=== PATIENT | female | born 1960 | race Caucasian/White ===

== ENCOUNTER 2017-03-04 20:24 | Inpatient (IN) ==
--- NOTE | 2017-03-04 23:09 | Internal Med History&Physical ---
<EddiYves - Last Filed: 03/04/17 23:27> Date of Encounter: 03/04/17 Time of Encounter: 22:30 Assessment and Plan (1) Dehydration Current visit: No Status: Acute - IV fluids. 80 mls/hr. - Encourage fluid PO intake. (2) KENYA (acute kidney injury) Current visit: Yes Status: Acute Current creatinine level at 1.36. Baseline is 0.84 from 02/24/15. Likely secondary to dehydration. - Follow plan above. (3) Light-headedness Current visit: Yes Status: Acute CTA of head reveals no acute abnormalities. Neuro assessment normal. Patient denies any fever, dysuria, or hematuria. UA shows no signs of infection. Patient afebrile. Suspicion of UTI is low. Likely secondary to dehydration. - Follow plan stated for dehydration. (4) Chest pain Current visit: Yes Status: Acute Atypical chest pain symptoms. BRIANNA score 2. EKG shows Sinus tachy with no signs of ischemic changes. CTA of chest shows no PE or acute cardiopulmonary disease. Chest pain reproducible with palpation and with deep breaths. Most likely muscular pain vs. GERD. - Trend troponins. - Repeat EKG in morning. - Check Magnesium level in morning. - Pepcid BID. Qualifiers: Chest pain type: chest pain on breathing Qualified Code(s): R07.1 - Chest pain on breathing; R07.81 - Pleurodynia (5) Hypertension Current visit: Yes Status: Acute BP currently elevated at 168/67. - Metoprolol. Qualifiers: Hypertension type: unspecified Qualified Code(s): I10 - Essential (primary ) hypertension (6) Hypothyroidism Current visit: Yes Status: Acute - Synthroid. Qualifiers: Qualified Code(s): E03.9 - Hypothyroidism, unspecified (7) Anxiety Current visit: Yes Status: Acute - Buspar. - Ativan. (8) DVT prophylaxis Current visit: Yes Status: Acute - Ambulate TID. Internal Medicine - H&P: HPI Chief complaint: Light-headedness, shortness of breath Admitted From: Hospital to Hospital Transfer History of present illness: Ms. Jacobsen is a 56 year old female with a PMH of HTN, thyroid disease, and anxiety that presents for light-headedness and shortness of breath. Patient says that earlier today while she was driving, she suddenly started to feel light-headed and became short of breath. She denies dizziness or nausea, but states that she did vomit. She denies any hematemesis. She admits to a mild DURBIN that comes and goes. She denies any vision changes. Denies weakness, numbness/ tingling. She was taken to [facility] where she was tachycardic 130s and hypotensive 80 systolic. She responded to IV fluids. She was also started on rocephin due to suspicion of UTI. She denies any fever, chills, dysuria, or hematuria. Patient says that she does not drink water at home and consumes only "Coolaid". She also admits that she does not eat well. She smokes tobacco everyday. After she was transferred to [facility], she says that she has started to feel some epigastric pain. She says it is non-radiating, not positionally related, pressure-like, and rates it as a 5/10 on the pain scale. She denies any SOB right now. Past Med Surg Social Fam HX - Past Medical History Medical history: hypertension, thyroid disease Psychiatric history: anxiety, depression - Past Surgical History Surgical History: non-contributory, knee replacement, orthopedic, other - Social History Smoking Status: Current every day smoker Smokeless Tobacco Status: No Alcohol use: occasionally Drug use: none - Family History Father Hx Family Endocrine Disorder: Yes (DM) Son Hx Family Endocrine Disorder: Yes (DM) Internal Medicine - H&P: Meds Metoprolol [Lopressor] 100 mg PO BID 11/30/14 [History] Buspirone HCl [Buspar] 30 mg PO DAILY 03/04/17 [History] Cyclobenzaprine HCl 5 mg PO TID PRN 03/04/17 [History] Dicyclomine [Bentyl] 20 mg PO TID 03/04/17 [History] Duloxetine HCl [Cymbalta] 60 mg PO DAILY 03/04/17 [History] Estrogens, Conjugated [Premarin] 0.625 mg PO DAILY 03/04/17 [History] Gabapentin [Neurontin] 300 mg PO BID 03/04/17 [History] Ibuprofen [Motrin] 800 mg PO TID PRN 03/04/17 [History] LORazepam [Ativan] 0.5 mg PO TID 03/04/17 [History] Levothyroxine [Synthroid] 75 mcg PO 0630 03/04/17 [History] Lurasidone HCl [Latuda] 60 mg PO DAILY 03/04/17 [History] Multivitamin [One Daily Essential] 1 each PO DAILY 03/04/17 [History] Omeprazole [PriLOSEC] 20 mg PO DAILY 03/04/17 [History] Onabotulinumtoxina [Botox] 200 unit IM [id number] 03/04/17 [History] Oxybutynin [Ditropan] 5 mg PO DAILY 03/04/17 [History] Simvastatin [Zocor] 40 mg PO HS 03/04/17 [History] 3 Allergy/AdvReac Type Severity Reaction Status Date / Time doxycycline Allergy Nausea Verified 03/04/17 16:18 aspirin AdvReac Nausea Verified 03/04/17 16:18 Oxycodone [From Percocet] AdvReac Vomiting Verified 03/04/17 16:18 All Systems PM: A 10-system review of systems was performed and is negative for pertinent findings except as documented above in the HPI. - Constitutional Constitutional: as per HPI - EENT Eyes: as per HPI, no blurry vision, no change in vision, no diplopia - Cardiovascular Cardiovascular ROS IM: chest pain, dyspnea, lightheadedness - Respiratory Respiratory: dyspnea, no cough - Gastrointestinal Gastrointestinal: abdominal pain (Epigastric pain. ), heartburn, vomiting, no constipation, no diarrhea, no loose stools, no nausea - Genitourinary Genitourinary: as per HPI, no difficulty urinating, no dysuria, no hematuria - Musculoskeletal Musculoskeletal ROS IM: no muscle weakness, no numbness, no tingling - Neurological Neurological ROS: no dizziness, no numbness, no tingling, no weakness - Constitutional Vitals: Temp Pulse Resp BP Pulse Ox 98.9 F 128 20 168/67 98 03/04/17 22:04 03/04/17 22:04 03/04/17 22:04 03/04/17 22:04 03/04/17 22:04 General appearance: Present: A&O X 3, no acute distress, answers questions appropriately - Eye Eye exam: Present: EOMI - ENT ENT exam: Present: mucous membranes dry - Respiratory Respiratory exam: Present: chest wall tenderness (Reproducible with touch. ), CTAB. Absent: rhonchi, wheezes - Cardiovascular Cardiovascular exam: Present: +S1, +S2, tachycardia - GI/Abdominal GI/Abdominal exam: Present: normal bowel sounds, soft, tenderness (Mid- epigastric pain. ). Absent: guarding, rebound - Extremities Exam Extremities exam: Present: full ROM, radial pulses palpable and symmetrical. Absent: pedal edema, tenderness - Neurological Exam Neurological exam: Present: CN II-XII intact, oriented X3, reflexes normal, no focal deficits, strengths equal and symetr throughout Internal Med - H&P Results - EKG Data -: EKG Interpreted by Myself EKG shows normal: sinus rhythm Rate: tachycardia - EKG Data Prior EKG available for review: no <Bhaskar-Kushal Fonseca - Last Filed: 03/05/17 00:29> Date of Encounter: 03/04/17 Internal Medicine - H&P: HPI History of present illness: Ms. Jacobsen is a 56 year old female All Systems PM: A 10-system review of systems was performed and is negative for pertinent findings except as documented above in the HPI. - Constitutional Vitals: Temp Pulse Resp BP Pulse Ox 98.9 F 128 20 168/67 98 03/04/17 22:04 03/04/17 22:04 03/04/17 22:04 03/04/17 22:04 03/04/17 22:04 - Attending Attestation I examined this patient and my medical decision-making was reviewed with the Resident Physician. I agree with the documented findings, disposition and treatment plan as described except to the extent set forth below. I have seen and examined the patient. Patient presents as a transfer from [facility]. She presented initially for lightheadedness and shortness of breath. Patient has a history of hypertension, anxiety, depression and thyroid disease. She is a daily smoker. Initial workup in the ED including CTA chest is negative for PE and negative for acute cardiopulmonary disease. CT of the head is negative for any acute intracranial abnormality. Significant lab findings included elevated creatinine at 1.36, likely due to dehydration and volume depletion. Troponin is elevated at 0.08 probably due to tachycardia and dehydration. EKG shows sinus tachycardia. We will trend troponin. Continue all home medications. Continue IV fluids. Repeat labs in a.m. Patient is awake and alert. Able to provide all history. She has no focal neurological deficits. Monitor closely. Patient has been explained about her condition and plan of care in detail. She understood and agreed. No unanswered questions. CODE STATUS full code.
[2017-03-04] MEDS ORDERED: Ondansetron ODT 4 MG TAB.RAPDIS SL PRN (23:20)
[2017-03-04] MEDS: 0.9 % Sodium Chloride 1,000 ML IVC SCH (23:37)
[2017-03-04] MEDS: Famotidine 20 MG TABLET PO SCH (23:46)
[2017-03-05 00:42] LABS: Mean Corpuscular HGB Conc 33.3 g/dL (31.6-35.5); Mean Corpuscular Hemoglobin 32.1 pg (28.0-33.3); Mean Corpuscular Volume 96.2 fL (83.0-100.0); Mean Platelet Volume 9.1 fL (9.4-12.4); Platelet Count 320 K/mcL (140-400); Red Blood Count 3.43 M/mcL (3.82-4.97); Red Cell Distribution Width 12.6 % (11.5-14.5)
[2017-03-05] MEDS ORDERED: Acetaminophen 325 MG TABLET PO PRN (00:49)
[2017-03-05] MEDS ORDERED: Melatonin 3 MG TABLET PO PRN (00:54)
[2017-03-05 00:55] LABS: BUN/Creatinine Ratio 14 (6-26); Blood Urea Nitrogen 14 mg/dL (7-20); Calcium 8.5 mg/dL (8.6-10.8); Carbon Dioxide 18 mEq/L (19-29); Chloride 112 mEq/L (98-109); Glucose 103 mg/dL (70-99); Osmolality,Calculated 291 (280-300); Potassium 3.6 mEq/L (3.5-4.5); Sodium 140 mEq/L (136-145); eGFR For African Americans > 60 (> 60); eGFR For Non-African Americans 58 (> 60)
[2017-03-05] MEDS: *HR* Heparin 5,000 UNIT/ML VIAL SQ SCH ×4 (01:05→21:24)
[2017-03-05 05:37] LABS: Basophils # 0.1 K/mcL (0.0-0.2); Basophils % 0.6 %; Eosinophils # 0.1 K/mcL (0.0-0.6); Eosinophils % 1.2 %; Hematocrit 29.4 % (35.3-44.9); Hemoglobin 9.9 g/dL (11.5-15.4); Immature Granulocytes % 0.1 % (0-4); Lymphocytes # 3.4 K/mcL (0.6-4.6); Lymphocytes % 36.9 %; Mean Corpuscular HGB Conc 33.7 g/dL (31.6-35.5); Mean Corpuscular Hemoglobin 31.8 pg (28.0-33.3); Mean Corpuscular Volume 94.5 fL (83.0-100.0); Mean Platelet Volume 9.5 fL (9.4-12.4); Monocytes # 0.7 K/mcL (0.0-1.3); Monocytes % 7.7 %; Platelet Count 276 K/mcL (140-400); Red Blood Count 3.11 M/mcL (3.82-4.97); Red Cell Distribution Width 12.6 % (11.5-14.5); Segmented Neutrophils % 53.5 %
[2017-03-05 05:54] LABS: BUN/Creatinine Ratio 17 (6-26); Blood Urea Nitrogen 14 mg/dL (7-20); Calcium 8.3 mg/dL (8.6-10.8); Carbon Dioxide 14 mEq/L (19-29); Chloride 116 mEq/L (98-109); Glucose 98 mg/dL (70-99); Magnesium 1.5 mg/dL (1.6-2.6); Osmolality,Calculated 288 (280-300); Potassium 3.6 mEq/L (3.5-4.5); Sodium 139 mEq/L (136-145); eGFR For African Americans > 60 (> 60); eGFR For Non-African Americans > 60 (> 60)
[2017-03-05] MEDS: Ibuprofen 400 MG TABLET PO PRN ×2 (06:29→18:17)
[2017-03-05] MEDS: Famotidine 20 MG TABLET PO SCH ×2 (07:59→15:45)
[2017-03-05] MEDS: Gabapentin 300 MG CAPSULE PO SCH ×2 (07:59→21:24)
[2017-03-05] MEDS: Metoprolol 100 MG TABLET PO SCH ×2 (07:59→21:23)
[2017-03-05] MEDS: *HR* LORazepam 0.5 MG TABLET PO SCH ×3 (07:59→21:23)
[2017-03-05] MEDS: Multivitamin Liquid 15 ML UDC PO SCH (08:53)
[2017-03-05] MEDS: Lurasidone 20 MG TABLET PO SCH (08:53)
[2017-03-05] MEDS: 0.9 % Sodium Chloride 1,000 ML IVC SCH (10:48)
--- NOTE | 2017-03-05 10:52 | Cardiology Consult Note ---
<Mike Wilkes R - Last Filed: 03/05/17 11:30> Date of Encounter: 03/05/17 Time of Encounter: 10:52 Assessment and Plan (1) Elevated troponin Current Visit: Yes Status: Acute Troponin 0.08 0.08, 0.05 in setting of dehydration, KENYA, profound hypotension now with hypertension. Suspect demand ischemia, nondiagnostic for ACS. No ischemic EKG changes. Documentation that pt complained of chest pain yesterday, which now pt reports she "can't remember". Denies chest pain currently. No hx of CAD, risk factors of HTN, HLD, obesity, tobacco abuse. Recommend checking echo to evaluate structure and function. If no significant findings, anticipate sign off from cardiology standpoint. Given risk factors for CAD, recommend stress test as outpt if no significant echo findings. (2) Hypertension Current Visit: Yes Status: Acute Currently on Lopressor 100mg BID. BP not at goal. Add norvasc 5mg daily. Adjust as necessary. Qualifiers: Hypertension type: unspecified Qualified Code(s): I10 - Essential (primary ) hypertension Discussion w patient/family: The assessment and plan as outlined above was discussed with the patient and/or family members who expressed understanding and agreement. All questions were answered. Thank you for involving us in the care of your patient. Please call with any questions. I will discuss all the above with Dr. Mcmanus and make changes as necessary. History of Present Illness Consult date: 03/05/17 Requesting physician: Last Dawn Consult reason: Elevated troponin Chief complaint: Dizziness, vomiting, dyspnea History of present illness: Ms. Jacobsen is a 56 year old female with a PMH of HTN, thyroid disease, and anxiety that presented to [facility] for light-headedness and shortness of breath. Patient says that she was driving, she suddenly started to feel light-headed and became short of breath. Reports vomiting at urgent care. Pt was tachycardic with HR 130s, SR, and hypotensive as low as 70s systolic, then hypertensive BP as high as 175/99. Reports she does not drink water at home and consumes only "Koolaid". She also admits that she does not eat well. Mild KENYA creatinine 1.36 on admission, now improved. There is documentation of chest pain. Pt denies chest pain currently, unsure if she had any yesterday. Troponins 0.08, 0.08, 0.05. Cardiology consulted for further recommendations. Past Med Surg Social Fam HX - Past Medical History Medical history: hypertension, thyroid disease Psychiatric history: anxiety, depression - Past Surgical History Surgical History: non-contributory, knee replacement, orthopedic, other - Social History Smoking Status: Current every day smoker Smokeless Tobacco Status: No Alcohol use: occasionally Drug use: none - Family History Father Hx Family Endocrine Disorder: Yes (DM) Son Hx Family Endocrine Disorder: Yes (DM) Medications and Allergies Metoprolol [Lopressor] 100 mg PO BID 11/30/14 [History] Buspirone HCl [Buspar] 30 mg PO DAILY 03/04/17 [History] Cyclobenzaprine HCl 5 mg PO TID PRN 03/04/17 [History] Dicyclomine [Bentyl] 20 mg PO TID 03/04/17 [History] Duloxetine HCl [Cymbalta] 60 mg PO DAILY 03/04/17 [History] Estrogens, Conjugated [Premarin] 0.625 mg PO DAILY 03/04/17 [History] Gabapentin [Neurontin] 300 mg PO BID 03/04/17 [History] Ibuprofen [Motrin] 800 mg PO TID PRN 03/04/17 [History] LORazepam [Ativan] 0.5 mg PO TID 03/04/17 [History] Levothyroxine [Synthroid] 75 mcg PO 0630 03/04/17 [History] Lurasidone HCl [Latuda] 60 mg PO DAILY 03/04/17 [History] Multivitamin [One Daily Essential] 1 each PO DAILY 03/04/17 [History] Omeprazole [PriLOSEC] 20 mg PO DAILY 03/04/17 [History] Onabotulinumtoxina [Botox] 200 unit IM [id number] 03/04/17 [History] Oxybutynin [Ditropan] 5 mg PO DAILY 03/04/17 [History] Simvastatin [Zocor] 40 mg PO HS 03/04/17 [History] 3 Allergy/AdvReac Type Severity Reaction Status Date / Time doxycycline Allergy Nausea Verified 03/04/17 16:18 aspirin AdvReac Nausea Verified 03/04/17 16:18 Oxycodone [From Percocet] AdvReac Vomiting Verified 03/04/17 16:18 All Systems Review: A 10-system review of systems was performed and is negative for pertinent findings except as documented above in the HPI. - Cardiovascular Cardiovascular: as per HPI, dyspnea at rest, dyspnea on exertion, lightheadedness - Respiratory Respiratory: dyspnea - Neurological Neurological: dizziness Physical Examination Vital Signs, Last 4 Hours Temp Pulse Resp BP Pulse Ox 03/05/17 07:01 98.3 F 105 18 175/99 98 Vital Signs Temp Pulse Resp BP Pulse Ox 03/05/17 10:57 98.6 F 74 16 147/96 97 03/05/17 07:01 98.3 F 105 18 175/99 98 03/05/17 03:15 99.3 F 111 20 144/67 97 03/04/17 22:04 98.9 F 128 20 168/67 98 Intake and Output 03/04/17 03/05/17 03/05/17 23:59 07:59 15:59 Intake Total 1480 / 1480 Output Total 800 / 800 300 / 300 Balance -800 / -800 1180 / 1180 Intake: IV Fluids 1000 / 1000 0.9 % Sodium Chloride 1,000 ML 1000 / 1000 @ 80 mls/hr IVC .[id number] [facility] Rx #:[id number] Oral 480 / 480 Output: Urine 300 / 300 Urethral ([place]) 300 / 300 Catheter 800 / 800 Other: Meal Breakfast Percent of Meal Consumed 35% Weight 80.966 kg 81.102 kg Patient Weight 03/05/17 23:59 Weight 81.102 kg General: Conversant, No Apparent Distress HEENT: Atraumatic, Normocephaly, Mucus Membranes Moist Neck: No JVD, Normal carotid pulses Cardiac: Reg Rate and Rhythm, Normal S1 and S2, No Murmur Lungs: Normal Breath Sounds, No Wheeze, Rales, Rhonchi Neuro: Alert and responsive, No focal deficits noted Abdomen: Soft, Non-Tender Skin: No rashes noted on visualized skin Musculoskeletal: No Chest Wall Tenderness Extremities: No Clubbing, No Cyanosis, No Edema, Normal Pulses Results 03/05/17 05:29 03/05/17 05:29 Lab Results 03/05/17 03/05/17 03/05/17 00:14 00:36 00:36 WBC 9.4 Hgb 11.0 L Hct 33.0 L Plt Count 320 Sodium 140 Potassium 3.6 Chloride 112 H Carbon Dioxide 18 L BUN 14 Creatinine 0.99 Glucose 103 H Calcium 8.5 L Magnesium Troponin I 0.08 H* 03/05/17 03/05/17 03/05/17 05:29 05:29 05:29 WBC 9.3 Hgb 9.9 L Hct 29.4 L Plt Count 276 Sodium 139 Potassium 3.6 Chloride 116 H Carbon Dioxide 14 L BUN 14 Creatinine 0.83 Glucose 98 Calcium 8.3 L Magnesium 1.5 L Troponin I 0.05 H* Short CBC 03/05/17 03/05/17 03/05/17 Range/Units 05:29 05:29 05:29 WBC 9.3 (4.3-11.1) K/mcL RBC 3.11 L (3.82-4.97) M/mcL Hgb 9.9 L (11.5-15.4) g/dL Hct 29.4 L (35.3-44.9) % MCV 94.5 (83.0-100.0) fL MCH 31.8 (28.0-33.3) pg MCHC 33.7 (31.6-35.5) g/dL RDW 12.6 (11.5-14.5) % Plt Count 276 (140-400) K/mcL MPV 9.5 (9.4-12.4) fL Immature Gran % 0.1 (0-4) % Seg Neutrophils % 53.5 % Lymphocytes % 36.9 % Monocytes % 7.7 % Eosinophils % 1.2 % Basophils % 0.6 % Neutrophils # 5.0 (1.6-8.9) K/mcL Lymphocytes # 3.4 (0.6-4.6) K/mcL Monocytes # 0.7 (0.0-1.3) K/mcL Eosinophils # 0.1 (0.0-0.6) K/mcL Basophils # 0.1 (0.0-0.2) K/mcL Sodium 139 (136-145) mEq/L Potassium 3.6 (3.5-4.5) mEq/L Chloride 116 H (98-109) mEq/L Carbon Dioxide 14 L (19-29) mEq/L BUN 14 (7-20) mg/dL Creatinine 0.83 (0.57-1.11) mg/dL Est GFR ( Amer) > 60 (> 60) Est GFR (Non-Af Amer) > 60 (> 60) BUN/Creatinine Ratio 17 (6-26) Glucose 98 (70-99) mg/dL Calculated Osmolality 288 (280-300) Calcium 8.3 L (8.6-10.8) mg/dL Magnesium 1.5 L (1.6-2.6) mg/dL Troponin I 0.05 H* (0-0.03) ng/mL 03/05/17 03/05/17 03/05/17 Range/Units 00:36 00:36 00:14 WBC 9.4 (4.3-11.1) K/mcL RBC 3.43 L (3.82-4.97) M/mcL Hgb 11.0 L (11.5-15.4) g/dL Hct 33.0 L (35.3-44.9) % MCV 96.2 (83.0-100.0) fL MCH 32.1 (28.0-33.3) pg MCHC 33.3 (31.6-35.5) g/dL RDW 12.6 (11.5-14.5) % Plt Count 320 (140-400) K/mcL MPV 9.1 L (9.4-12.4) fL Immature Gran % (0-4) % Seg Neutrophils % % Lymphocytes % % Monocytes % % Eosinophils % % Basophils % % Neutrophils # (1.6-8.9) K/mcL Lymphocytes # (0.6-4.6) K/mcL Monocytes # (0.0-1.3) K/mcL Eosinophils # (0.0-0.6) K/mcL Basophils # (0.0-0.2) K/mcL Sodium 140 (136-145) mEq/L Potassium 3.6 (3.5-4.5) mEq/L Chloride 112 H (98-109) mEq/L Carbon Dioxide 18 L (19-29) mEq/L BUN 14 (7-20) mg/dL Creatinine 0.99 (0.57-1.11) mg/dL Est GFR ( Amer) > 60 (> 60) Est GFR (Non-Af Amer) 58 L (> 60) BUN/Creatinine Ratio 14 (6-26) Glucose 103 H (70-99) mg/dL Calculated Osmolality 291 (280-300) Calcium 8.5 L (8.6-10.8) mg/dL Magnesium (1.6-2.6) mg/dL Troponin I 0.08 H* (0-0.03) ng/mL BMP 03/05/17 03/05/17 Range/Units 05:29 00:36 Sodium 139 140 (136-145) mEq/L Potassium 3.6 3.6 (3.5-4.5) mEq/L Chloride 116 H 112 H (98-109) mEq/L Carbon Dioxide 14 L 18 L (19-29) mEq/L BUN 14 14 (7-20) mg/dL Creatinine 0.83 0.99 (0.57-1.11) mg/dL Glucose 98 103 H (70-99) mg/dL Calcium 8.3 L 8.5 L (8.6-10.8) mg/dL Cardiac Enzymes 03/05/17 03/05/17 Range/Units 05:29 00:14 Troponin I 0.05 H* 0.08 H* (0-0.03) ng/mL Active Medications Acetaminophen (Tylenol) 650 mg PO Q6HR PRN PRN Reason: Mild Pain (1-3) Stop: 09/04/17 00:50 Last Admin: 03/05/17 01:04 Dose: 650 mg Buspirone HCl (Buspar) 30 mg PO DAILY [facility] Stop: 09/04/17 09:01 Last Admin: 03/05/17 07:59 Dose: 30 mg Duloxetine HCl (Cymbalta) 60 mg PO DAILY [facility] Stop: 09/04/17 09:01 Last Admin: 03/05/17 07:59 Dose: 60 mg Estrogens Conjugated (Premarin) 0.625 mg PO DAILY [facility] Stop: 09/04/17 09:01 Last Admin: 03/05/17 07:58 Dose: 0.625 mg Famotidine (Pepcid) 20 mg PO BIDAC [facility] PRN Reason: Protocol Stop: 09/03/17 23:31 Last Admin: 03/05/17 07:59 Dose: 20 mg Gabapentin (Neurontin) 300 mg PO BID [facility] Stop: 09/04/17 09:01 Last Admin: 03/05/17 07:59 Dose: 300 mg Heparin Sodium (Porcine) (Heparin) 5,000 unit SQ Q8HCO [facility] Stop: 09/04/17 00:31 Last Admin: 03/05/17 06:16 Dose: 5,000 unit Sodium Chloride (0.9 % Sodium Chloride) 1,000 mls @ 80 mls/hr IVC .[id number] [facility] Stop: 09/03/17 23:16 Last Admin: 03/05/17 10:48 Dose: 80 mls/hr Ibuprofen (Motrin) 400 mg PO Q6HR PRN PRN Reason: Mild Pain (1-3) Stop: 09/04/17 06:16 Last Admin: 03/05/17 06:29 Dose: 400 mg Levothyroxine Sodium (Synthroid) 75 mcg PO 0630 [facility] Stop: 09/04/17 06:31 Last Admin: 03/05/17 06:16 Dose: 75 mcg Lorazepam (Ativan) 0.5 mg PO TID [facility] Stop: 09/04/17 09:01 Last Admin: 03/05/17 07:59 Dose: 0.5 mg Lurasidone HCl (Latuda) 60 mg PO DAILY [facility] Stop: 09/04/17 09:01 Last Admin: 03/05/17 08:53 Dose: 60 mg Melatonin (Melatonin) 3 mg PO HS PRN PRN Reason: Insomnia Stop: 09/04/17 00:55 Last Admin: 03/05/17 01:04 Dose: 3 mg Metoprolol Tartrate (Lopressor) 100 mg PO BID [facility] Stop: 09/04/17 09:01 Last Admin: 03/05/17 07:59 Dose: 100 mg Multivitamins/Minerals (Cerovite Liquid) 15 ml PO DAILY [facility] Stop: 09/04/17 09:01 Last Admin: 03/05/17 08:53 Dose: 15 ml Omeprazole (Prilosec) 20 mg PO 0630 [facility] PRN Reason: Protocol Stop: 09/03/17 23:16 Last Admin: 03/05/17 06:16 Dose: 20 mg Ondansetron HCl (Zofran Odt) 4 mg SL Q8HR PRN PRN Reason: Nausea And Vomiting Stop: 09/03/17 23:21 Oxybutynin Chloride (Ditropan) 5 mg PO DAILY [facility] PRN Reason: Protocol Stop: 05/24/18 09:01 Last Admin: 03/05/17 07:59 Dose: 5 mg Simvastatin (Zocor) 40 mg PO HS [facility] PRN Reason: Protocol Stop: 09/03/17 23:16 Last Admin: 03/04/17 23:37 Dose: 40 mg - EKG Interpretation EKG results cardiology: personally reviewed (sinus tach), other (12 hr tele AVG HR 104, sinus tach) Consult Discharge Plan - Plan Referrals: Bhargav Fortune, NON [employer] [Primary Care Provider] - 03/17/17 5:30 pm <Rome Mcmanus - Last Filed: 03/05/17 18:03> Date of Encounter: 03/05/17 - Attending Attestation I have personally performed a face to face evaluation on this patient. I have reviewed and agree with the care plan. History and Exam by me shows: 1. Elevated troponin - minimal, suspect demand ischemia, no acute EKG changes, hx of chest pain pt now denies, not clearly ischemic, however risk factors including tobacco abuse, hypertension, obesity, hyperlipidemia. Echo ordered, if structurally normal heart is at low risk for hospital discharge, with outpatient stress imaging 2. Hypertension; bp markedly elevated on presentation, added Norvasc 5 mg q d, better controlled back on home meds. 3. Tobacco abuse, discussed smoking cessation, pt reports she has quit but still smokes occasionally. 4. Dehydration: improved with fluid replacement. Assessment and Plan Discussion w patient/family: The assessment and plan as outlined above was discussed with the patient and/or family members who expressed understanding and agreement. All questions were answered. Thank you for involving us in the care of your patient. Please call with any questions. History of Present Illness History of present illness: Ms. Jacobsen is a 56 year old female All Systems Review: A 10-system review of systems was performed and is negative for pertinent findings except as documented above in the HPI. Physical Examination Vital Signs, Last 4 Hours Temp Pulse Resp BP Pulse Ox 03/05/17 15:51 97.3 F L 78 16 174/116 99 Results 03/05/17 05:29 03/05/17 05:29 Lab Results 03/05/17 03/05/17 03/05/17 00:14 00:36 00:36 WBC 9.4 Hgb 11.0 L Hct 33.0 L Plt Count 320 Sodium 140 Potassium 3.6 Chloride 112 H Carbon Dioxide 18 L BUN 14 Creatinine 0.99 Glucose 103 H Calcium 8.5 L Magnesium Troponin I 0.08 H* 03/05/17 03/05/17 03/05/17 05:29 05:29 05:29 WBC 9.3 Hgb 9.9 L Hct 29.4 L Plt Count 276 Sodium 139 Potassium 3.6 Chloride 116 H Carbon Dioxide 14 L BUN 14 Creatinine 0.83 Glucose 98 Calcium 8.3 L Magnesium 1.5 L Troponin I 0.05 H* 03/05/17 11:08 WBC Hgb Hct Plt Count Sodium Potassium Chloride Carbon Dioxide BUN Creatinine Glucose Calcium Magnesium Troponin I 0.02
[2017-03-05] MEDS: amLODIPine 5 MG TABLET PO SCH (15:49)
--- NOTE | 2017-03-05 18:16 | Internal Med Progress Note ---
Date of Encounter: 03/05/17 Time of Encounter: 11:00 - Assessment and plan (1) Chest pain Current Visit: Yes Status: Acute Assessment and plan: -Patient with atypical chest pain and elevated troponins -Cardiology consulted with recommendation of echocardiogram. -If echocardiogram without any acute findings then will have patient obtain outpatient stress test per cardiology. Qualifiers: Chest pain type: unspecified Qualified Code(s): R07.9 - Chest pain, unspecified (2) Light-headedness Current Visit: Yes Status: Acute Assessment and plan: -Suspect secondary to dehydration. -Will continue IV fluids and monitor. (3) KENYA (acute kidney injury) Current Visit: Yes Status: Acute Assessment and plan: -Suspect secondary to dehydration -Will continue IV fluids as above and monitor. (4) Hypertension Current Visit: Yes Status: Acute Assessment and plan: -Continue home medications. Qualifiers: Hypertension type: unspecified Qualified Code(s): I10 - Essential (primary ) hypertension (5) Hypothyroidism Current Visit: Yes Status: Acute Assessment and plan: -Continue home medications. Qualifiers: Hypothyroidism type: unspecified Qualified Code(s): E03.9 - Hypothyroidism , unspecified (6) Anxiety Current Visit: Yes Status: Acute Assessment and plan: -Continue home medications. (7) DVT prophylaxis Current Visit: Yes Status: Acute Assessment and plan: -Patient is to ambulate. - Subjective Interval history: No acute events overnight - Constitutional Vitals: Temp Pulse Resp BP Pulse Ox 97.3 F L 78 16 174/116 99 03/05/17 15:51 03/05/17 15:51 03/05/17 15:51 03/05/17 15:51 03/05/17 15:51 General appearance: Present: A&O X 3, no acute distress, answers questions appropriately - Respiratory Respiratory exam: Present: CTAB. Absent: accessory muscle use, rales, rhonchi, wheezes - Cardiovascular Cardiovascular exam: Present: RRR, +S1, +S2. Absent: diastolic murmur, gallop, rubs, systolic murmur Internal Medicine: Result - Labs CBC & Chem 7: 03/05/17 05:29 03/05/17 05:29 Labs: Short CBC 03/05/17 03/05/17 Range/Units 00:36 05:29 WBC 9.4 9.3 (4.3-11.1) K/mcL Hgb 11.0 L 9.9 L (11.5-15.4) g/dL Hct 33.0 L 29.4 L (35.3-44.9) % Plt Count 320 276 (140-400) K/mcL Neutrophils # 5.0 (1.6-8.9) K/mcL BMP 03/05/17 03/05/17 00:36 05:29 Sodium 140 139 Potassium 3.6 3.6 Chloride 112 H 116 H Carbon Dioxide 18 L 14 L BUN 14 14 Creatinine 0.99 0.83 Glucose 103 H 98 Calcium 8.5 L 8.3 L Cardiac Enzymes 03/05/17 03/05/17 03/05/17 Range/Units 00:14 05:29 11:08 Troponin I 0.08 H* 0.05 H* 0.02 (0-0.03) ng/mL Consult Discharge Plan - Plan Referrals: Bhargav Fortune, W[employer] INSPECTOR [Primary Care Provider] - 03/17/17 5:30 pm
--- NOTE | 2017-03-05 20:17 | Electrocardiograph Report ---
[place] [address] Test Date: 2017-03-05 Pat Name: Jessica Jacobsen Department: 113 Room: 3B24 Gender: F [employer] T[employer]: : 1960 Requested By: Yves Montague Order Number: [id number] Reading MD: Irvin Mckeon MD Measurements Intervals Arnett Rate: 106 P: 33 OK: 156 QRS: 17 QRSD: 86 T: -9 QT: 335 QTc: 397 Interpretive Statements SINUS TACHYCARDIA BASELINE ARTIFACT Electronically Signed On 03-05-2017 20:15:57 EST by Irvin Mckeon MD
[2017-03-06] MEDS: 0.9 % Sodium Chloride 1,000 ML IVC SCH ×2 (01:20→17:48)
[2017-03-06] MEDS: *HR* Heparin 5,000 UNIT/ML VIAL SQ SCH ×2 (06:01→17:47)
[2017-03-06] MEDS: Multivitamin Liquid 15 ML UDC PO SCH (09:10)
[2017-03-06] MEDS: Metoprolol 100 MG TABLET PO SCH (09:11)
[2017-03-06] MEDS: amLODIPine 5 MG TABLET PO SCH (09:11)
[2017-03-06] MEDS: Gabapentin 300 MG CAPSULE PO SCH (09:11)
[2017-03-06] MEDS: Famotidine 20 MG TABLET PO SCH ×2 (09:11→17:47)
[2017-03-06] MEDS: *HR* LORazepam 0.5 MG TABLET PO SCH ×2 (09:11→17:47)
[2017-03-06] MEDS: Lurasidone 20 MG TABLET PO SCH (09:11)
--- NOTE | 2017-03-06 09:47 | Event Note ---
Date of Encounter: 03/06/17 Time of Encounter: 09:46 - Cardiology Event Note TTE with LVEF 60%, no wall motion abnormalities. Per previous cardiology notes, cardioogy will sign off and will follow in outpatient setting. Follow up set.
[2017-03-06 11:00] LABS: BUN/Creatinine Ratio 10 (6-26); Blood Urea Nitrogen 7 mg/dL (7-20); Calcium 8.3 mg/dL (8.6-10.8); Carbon Dioxide 17 mEq/L (19-29); Chloride 110 mEq/L (98-109); Glucose 104 mg/dL (70-99); Osmolality,Calculated 282 (280-300); Potassium 3.4 mEq/L (3.5-4.5); Sodium 137 mEq/L (136-145); eGFR For African Americans > 60 (> 60); eGFR For Non-African Americans > 60 (> 60)
[2017-03-06 11:01] LABS: Basophils # 0.1 K/mcL (0.0-0.2); Basophils % 0.9 %; Eosinophils % 0.3 %; Hematocrit 29.5 % (35.3-44.9); Hemoglobin 10.1 g/dL (11.5-15.4); Immature Granulocytes % 0.6 % (0-4); Lymphocytes # 2.3 K/mcL (0.6-4.6); Lymphocytes % 25.7 %; Mean Corpuscular HGB Conc 34.2 g/dL (31.6-35.5); Mean Corpuscular Volume 93.4 fL (83.0-100.0); Mean Platelet Volume 9.5 fL (9.4-12.4); Monocytes # 0.7 K/mcL (0.0-1.3); Monocytes % 7.8 %; Neutrophils # 5.7 K/mcL (1.6-8.9); Platelet Count 279 K/mcL (140-400); Red Blood Count 3.16 M/mcL (3.82-4.97); Red Cell Distribution Width 12.5 % (11.5-14.5); Segmented Neutrophils % 64.7 %
[2017-03-06 15:07] VITALS: BP 148/92
--- NOTE | 2017-03-06 17:49 | Discharge Summary ---
Date of Encounter: 03/06/17 Time of Encounter: 11:00 - Discharge Diagnosis (1) Chest pain Priority: Secondary Status: Acute Qualifiers: Chest pain type: unspecified Qualified Code(s): R07.9 - Chest pain, unspecified (2) Light-headedness Priority: Primary Status: Acute (3) KENYA (acute kidney injury) Priority: Secondary Status: Acute (4) Hypertension Priority: Secondary Status: Acute Qualifiers: Hypertension type: unspecified Qualified Code(s): I10 - Essential (primary ) hypertension (5) Hypothyroidism Priority: Secondary Status: Acute Qualifiers: Hypothyroidism type: unspecified Qualified Code(s): E03.9 - Hypothyroidism , unspecified (6) Anxiety Priority: Secondary Status: Acute - Discharge Medications Home Medications: Metoprolol [Lopressor] 100 mg PO BID 11/30/14 [History] Buspirone HCl [Buspar] 30 mg PO DAILY 03/04/17 [History] Cyclobenzaprine HCl 5 mg PO TID PRN 03/04/17 [History] Dicyclomine [Bentyl] 20 mg PO TID 03/04/17 [History] Duloxetine HCl [Cymbalta] 60 mg PO DAILY 03/04/17 [History] Estrogens, Conjugated [Premarin] 0.625 mg PO DAILY 03/04/17 [History] Gabapentin [Neurontin] 300 mg PO BID 03/04/17 [History] Ibuprofen [Motrin] 800 mg PO TID PRN 03/04/17 [History] LORazepam [Ativan] 0.5 mg PO TID 03/04/17 [History] Levothyroxine [Synthroid] 75 mcg PO 0630 03/04/17 [History] Lurasidone HCl [Latuda] 60 mg PO DAILY 03/04/17 [History] Multivitamin [One Daily Essential] 1 each PO DAILY 03/04/17 [History] Omeprazole [PriLOSEC] 20 mg PO DAILY 03/04/17 [History] Onabotulinumtoxina [Botox] 200 unit IM [id number] 03/04/17 [History] Oxybutynin [Ditropan] 5 mg PO DAILY 03/04/17 [History] Simvastatin [Zocor] 40 mg PO HS 03/04/17 [History] Allergies/Adverse Reactions: 3 Allergy/AdvReac Type Severity Reaction Status Date / Time doxycycline Allergy Nausea Verified 03/04/17 16:18 aspirin AdvReac Nausea Verified 03/04/17 16:18 Oxycodone [From Percocet] AdvReac Vomiting Verified 03/04/17 16:18 Procedures/tests Complete & Pending: Procedures Performed prior 72 hours Category Date Time Status ECG 12 lead ECG [ECG] AM 0600 Y 03/05/17 06:00 Completed EV echocardiogram Routine Y 03/05/17 11:33 Completed Date of admission: 03/04/17 22:05 Primary care physician: Bhargav Fortune CNP Consults: 03/05/17 09:42 Consult to Cardiology [CONS] Routine Comment: Consulting Provider: Cardiology Isabella Reason for Consult: atypical chest pain with elevated troponins Call Completed: No - Patient Status Disposition: Home, Self-Care - Discharge Instructions Follow Up With: Bhargav Fortune CNP [Primary Care Provider] - 03/17/17 5:30 pm Hospital course: Patient is a 56-year-old female with past medical history significant for HTN, thyroid disease, and anxiety who presented to the ER on 03/04/17 with lightheadedness and shortness of breath. Patient decided to come to the ER for evaluation and was admitted for dehydration. The patients hospital stay patient was given IV fluids and her symptoms resolved. She will be discharged to follow up with her primary care provider. - Time Spent with Patient Total time spent providing and/or coordinating discharge services: Less than 30 minutes - Constitutional Vitals: Temp Pulse Resp BP Pulse Ox 97.8 F 87 15 148/92 98 03/06/17 15:04 03/06/17 15:04 03/06/17 15:04 03/06/17 15:04 03/06/17 15:04 General appearance: Present: A&O X 3, no acute distress, answers questions appropriately - Respiratory Respiratory exam: Present: CTAB. Absent: accessory muscle use, rales, rhonchi, wheezes - Cardiovascular Cardiovascular exam: Present: RRR, +S1, +S2. Absent: diastolic murmur, gallop, rubs, systolic murmur
== END 2017-03-06 18:42 | disposition home or self-care (01) | DRG 422 ==
LOC: 3BNU → SUATTDRO 22:05
PROVIDERS: ADMIT Internal Medicine; ATTEND Hospitalist

== ENCOUNTER 2019-04-05 13:46 | Inpatient (IN) ==
[2019-04-05] MEDS ORDERED: Naloxone 0.4 MG/ML INJ IVP PRN (16:21)
[2019-04-05] MEDS ORDERED: Ondansetron 4 MG/2 ML VIAL IVP PRN (16:28)
[2019-04-05] MEDS ORDERED: 0.9 % Sodium Chloride 1,000 ML IVC SCH (16:30)
[2019-04-05] MEDS: ceFAZolin 1,000 MG in 0.9 % Sodium Chloride Mini Bag 100 ML IVPB SCH (23:54)
[2019-04-06 05:59] LABS: Basophils % 0.5 %; Eosinophils # 0.1 K/mcL (0.0-0.6); Eosinophils % 1.4 %; Hematocrit 29.4 % (35.3-44.9); Hemoglobin 9.8 g/dL (11.5-15.4); Immature Granulocytes % 0.2 % (0-4); Lymphocytes % 36.7 %; Mean Corpuscular HGB Conc 33.3 g/dL (31.6-35.5); Mean Platelet Volume 10.7 fL (9.4-12.4); Monocytes % 11.8 %; Neutrophils # 4.1 K/mcL (1.6-8.9); Platelet Count 232 K/mcL (140-400); Red Blood Count 2.97 M/mcL (3.82-4.97); Red Cell Distribution Width 12.4 % (11.5-14.5); Segmented Neutrophils % 49.4 %; White Blood Count 8.3 K/mcL (4.3-11.1)
[2019-04-06 06:19] LABS: BUN/Creatinine Ratio 16 (6-26); Blood Urea Nitrogen 16 mg/dL (8-23); Calcium 8.4 mg/dL (8.6-10.3); Carbon Dioxide 25 mEq/L (23-29); Chloride 106 mEq/L (98-107); Glucose 101 mg/dL (70-105); Osmolality,Calculated 293 (280-300); Potassium 3.8 mEq/L (3.5-5.1); Sodium 141 mEq/L (136-145); eGFR For African Americans > 60 (> 60); eGFR For Non-African Americans 58 (> 60)
[2019-04-06] MEDS ORDERED: *HR* Midazolam HCl 2 MG/2 ML VIAL ONE (07:07)
[2019-04-06] MEDS ORDERED: Ondansetron 4 MG/2 ML VIAL ONE (07:07)
[2019-04-06] MEDS ORDERED: *HR* FentaNYL (PF) 100 MCG/2 ML VIAL ONE ×2 (07:07→09:14)
[2019-04-06] MEDS ORDERED: Lidocaine -MPF 2% 2 ML VIAL ONE (07:07)
[2019-04-06] MEDS ORDERED: *HR* Propofol 200 MG/20 ML VIAL IVP ONE (07:07)
[2019-04-06] MEDS ORDERED: Dexamethasone 4 MG/ML VIAL ONE ×2 (07:09→08:14)
[2019-04-06] MEDS ORDERED: CeFAZolin Syr 2,000MG/20 ML 2,000 MG/20 ML SYRINGE IVPB ONE (07:35)
[2019-04-06] MEDS: ceFAZolin 1,000 MG in 0.9 % Sodium Chloride Mini Bag 100 ML IVPB SCH (07:36)
[2019-04-06] MEDS ORDERED: ROPIVACAINE/PF/NS 0.25% 1 EACH SYRINGE INTRAART ONE (07:37)
[2019-04-06] MEDS ORDERED: Ropivacaine/PF 0.5% 30 ML VIAL ONE (07:37)
[2019-04-06] MEDS ORDERED: *HR* PHENYLEPHRINE 1,000 MCG/10 ML SYRINGE IVP ONE (08:08)
[2019-04-06] MEDS ORDERED: Gabapentin 300 MG CAPSULE PO SCH (09:00)
[2019-04-06] MEDS ORDERED: Metoprolol 100 MG TABLET PO SCH (09:00)
[2019-04-06] MEDS ORDERED: Multivit/Ca/Min/Fe/FA 1 TAB TABLET PO SCH (09:00)
[2019-04-06] MEDS ORDERED: *HR* Rocuronium Bromide 50 MG/5 ML VIAL ONE (09:25)
[2019-04-06] MEDS ORDERED: Naloxone 0.4 MG/ML INJ IVP PRN (10:28)
[2019-04-06] MEDS ORDERED: Ondansetron 4 MG/2 ML VIAL IVP PRN (10:28)
[2019-04-06] MEDS: *HR* Heparin 5,000 UNIT/ML VIAL SQ SCH (18:34)
[2019-04-06] MEDS: Gabapentin 300 MG CAPSULE PO SCH (22:23)
[2019-04-06] MEDS: Metoprolol 100 MG TABLET PO SCH (22:24)
[2019-04-07] MEDS: *HR* Heparin 5,000 UNIT/ML VIAL SQ SCH ×2 (04:57→19:51)
[2019-04-07 05:04] LABS: Hematocrit 29.4 % (35.3-44.9); Hemoglobin 10.2 g/dL (11.5-15.4); Mean Corpuscular HGB Conc 34.7 g/dL (31.6-35.5); Mean Corpuscular Volume 95.1 fL (83.0-100.0); Mean Platelet Volume 10.3 fL (9.4-12.4); Platelet Count 259 K/mcL (140-400); Red Blood Count 3.09 M/mcL (3.82-4.97); Red Cell Distribution Width 11.9 % (11.5-14.5)
[2019-04-07 05:24] LABS: BUN/Creatinine Ratio 14 (6-26); Blood Urea Nitrogen 12 mg/dL (8-23); Carbon Dioxide 21 mEq/L (23-29); Chloride 106 mEq/L (98-107); Glucose 144 mg/dL (70-105); Osmolality,Calculated 282 (280-300); Sodium 135 mEq/L (136-145); eGFR For African Americans > 60 (> 60); eGFR For Non-African Americans > 60 (> 60)
[2019-04-07 05:42] LABS: Ferritin 70 ng/mL (10-120)
[2019-04-07] MEDS: Metoprolol 100 MG TABLET PO SCH ×2 (09:30→21:13)
[2019-04-07] MEDS: Multivit/Ca/Min/Fe/FA 1 TAB TABLET PO SCH (09:31)
[2019-04-07] MEDS: Gabapentin 300 MG CAPSULE PO SCH ×2 (09:31→21:13)
[2019-04-07 10:37] LABS: Bilirubin,Urine Negative (Negative); Blood,Urine Negative (Negative); Clarity,Urine Clear (Clear); Color,Urine Yellow (Yellow); Glucose,Urine (UA) Normal (Normal); Ketones,Urine Trace mg/dL (Negative); Leukocyte Esterase,Urine Negative (Negative); Nitrite,Urine Negative (Negative); Protein,Urine Negative (Neg-Trace); Specific Gravity,Urine 1.014 (1.010-1.025); Urobilinogen,Urine Normal (Normal)
[2019-04-08 03:44] LABS: BUN/Creatinine Ratio 16 (6-26); Blood Urea Nitrogen 14 mg/dL (8-23); Calcium 8.6 mg/dL (8.6-10.3); Carbon Dioxide 24 mEq/L (23-29); Chloride 105 mEq/L (98-107); Glucose 97 mg/dL (70-105); Osmolality,Calculated 284 (280-300); Potassium 3.7 mEq/L (3.5-5.1); Sodium 137 mEq/L (136-145); eGFR For African Americans > 60 (> 60); eGFR For Non-African Americans > 60 (> 60)
[2019-04-08 04:16] LABS: Hematocrit 28.7 % (35.3-44.9); Hemoglobin 9.7 g/dL (11.5-15.4); Mean Corpuscular HGB Conc 33.8 g/dL (31.6-35.5); Mean Corpuscular Hemoglobin 33.1 pg (28.0-33.3); Mean Platelet Volume 10.7 fL (9.4-12.4); Platelet Count 265 K/mcL (140-400); Red Blood Count 2.93 M/mcL (3.82-4.97); Red Cell Distribution Width 12.3 % (11.5-14.5); White Blood Count 13.7 K/mcL (4.3-11.1)
[2019-04-08] MEDS: *HR* Heparin 5,000 UNIT/ML VIAL SQ SCH ×2 (06:14→18:10)
[2019-04-08] MEDS: Metoprolol 100 MG TABLET PO SCH ×2 (09:53→21:08)
[2019-04-08] MEDS: Gabapentin 300 MG CAPSULE PO SCH ×2 (09:56→21:08)
[2019-04-08] MEDS: Multivit/Ca/Min/Fe/FA 1 TAB TABLET PO SCH (10:00)
[2019-04-09 05:03] LABS: Basophils % 0.4 %; Eosinophils # 0.1 K/mcL (0.0-0.6); Eosinophils % 0.8 %; Hematocrit 30.9 % (35.3-44.9); Hemoglobin 10.6 g/dL (11.5-15.4); Immature Granulocytes % 0.5 % (0-4); Lymphocytes # 3.4 K/mcL (0.6-4.6); Lymphocytes % 34.7 %; Mean Corpuscular HGB Conc 34.3 g/dL (31.6-35.5); Mean Corpuscular Hemoglobin 33.3 pg (28.0-33.3); Mean Corpuscular Volume 97.2 fL (83.0-100.0); Monocytes # 0.9 K/mcL (0.0-1.3); Monocytes % 8.6 %; Neutrophils # 5.5 K/mcL (1.6-8.9); Nucleated Red Blood Cells 0.2 /100 WBC (0); Platelet Count 264 K/mcL (140-400); Red Blood Count 3.18 M/mcL (3.82-4.97); Red Cell Distribution Width 12.1 % (11.5-14.5); White Blood Count 9.9 K/mcL (4.3-11.1)
[2019-04-09] MEDS: *HR* Heparin 5,000 UNIT/ML VIAL SQ SCH ×2 (05:39→17:19)
[2019-04-09] MEDS: Multivit/Ca/Min/Fe/FA 1 TAB TABLET PO SCH (08:40)
[2019-04-09] MEDS: Gabapentin 300 MG CAPSULE PO SCH ×2 (08:40→20:24)
[2019-04-09] MEDS: Metoprolol 100 MG TABLET PO SCH ×2 (08:40→20:24)
[2019-04-10] MEDS: *HR* Heparin 5,000 UNIT/ML VIAL SQ SCH ×2 (05:28→17:05)
[2019-04-10] MEDS: Metoprolol 100 MG TABLET PO SCH ×2 (09:22→20:37)
[2019-04-10] MEDS: Multivit/Ca/Min/Fe/FA 1 TAB TABLET PO SCH (09:23)
[2019-04-10] MEDS: Gabapentin 300 MG CAPSULE PO SCH ×2 (09:23→20:37)
[2019-04-11] MEDS: *HR* Heparin 5,000 UNIT/ML VIAL SQ SCH ×2 (06:07→17:56)
[2019-04-11] MEDS: Multivit/Ca/Min/Fe/FA 1 TAB TABLET PO SCH (09:49)
[2019-04-11] MEDS: Metoprolol 100 MG TABLET PO SCH ×2 (09:49→21:13)
[2019-04-11] MEDS: Gabapentin 300 MG CAPSULE PO SCH ×2 (09:49→21:13)
[2019-04-11] MEDS ORDERED: Potassium Chloride Elixir 20 MEQ/15 ML UDC PO ONE (11:02)
[2019-04-12] MEDS: *HR* Heparin 5,000 UNIT/ML VIAL SQ SCH (05:04)
[2019-04-12] MEDS: Metoprolol 100 MG TABLET PO SCH (08:53)
[2019-04-12] MEDS: Gabapentin 300 MG CAPSULE PO SCH (08:54)
[2019-04-12] MEDS: Multivit/Ca/Min/Fe/FA 1 TAB TABLET PO SCH (08:54)
[2019-04-12 12:28] VITALS: BP 116/85
== END 2019-04-12 15:33 | DRG 313 ==
LOC: 3ANU → SUATTDRO 15:14
PROVIDERS: ADMIT Internal Medicine; ATTEND Internal Medicine